=== PATIENT | female | born 1980 | race Caucasian/White ===

== ENCOUNTER → 2016-10-13 | Outpatient (CLI) | payer OTHER ==
[~2016-10-13] MED LIST: ACET50TA PO; IBUP80TA PO
[2016-10-13 11:24] LABS: ESTRADIOL 30.9 PG/ML
== END ==
LOC: M LAB 06:11
PROVIDERS: ATTEND Obstetrics & Gynecology Reproductive Endocrinology
DX: N97.9 Female infertility, unspecified (principal)

== ENCOUNTER → 2017-07-27 | Outpatient (REF) | payer OTHER ==
[2017-07-27 14:20] LABS: INFLUENZA A AMPLIFICATION POSITIVE (NEGATIVE); INFLUENZA B AMPLIFICATION NEGATIVE (NEGATIVE)
== END ==
LOC: M LAB REF 13:15
DX: J01.90 Acute sinusitis, unspecified (principal)

== ENCOUNTER → 2017-08-27 | Outpatient (REF) | payer OTHER | LOC: M LAB REF 16:26 | DX: N39.0 Urinary tract infection, site not specified (principal) ==

== ENCOUNTER → 2018-01-18 | Outpatient (CLI) | payer OTHER | LOC: M WUC 09:58 | DX: M25.571 Pain in right ankle and joints of right foot (principal) | CPT/HCPCS: 73610 ==

== ENCOUNTER → 2018-04-20 | Outpatient (REF) | payer OTHER | LOC: M LAB REF 13:53 | DX: Z12.4 Encounter for screening for malignant neoplasm of cervix (principal) ==

== ENCOUNTER → 2018-06-03 | Outpatient (CLI) | payer OTHER | LOC: M LAB 15:59 | DX: M25.562 Pain in left knee (principal) | CPT/HCPCS: 73564 ==

== ENCOUNTER → 2019-05-02 | Outpatient (REF) | payer OTHER ==
[~2019-05-02] MED LIST changes: -ACET50TA PO; +MAPA500T17 PO
== END ==
LOC: M LAB REF 19:25
PROVIDERS: ATTEND Advanced Practice Midwife
DX: Z12.4 Encounter for screening for malignant neoplasm of cervix (principal)

== ENCOUNTER → 2021-04-16 | Outpatient (REF) | payer OTHER | LOC: M SFHCWAGY 13:12 | PROVIDERS: ATTEND Advanced Practice Midwife | DX: Z01.419 Encounter for gynecological examination (general) (routine) without abnormal findings (principal); Z12.4 Encounter for screening for malignant neoplasm of cervix | CPT/HCPCS: 87624; G0123 ==

== ENCOUNTER → 2022-07-03 | Outpatient (CLI) | payer OTHER ==
[2022-07-03 12:30] LABS: BASO % 0.8 % (0.0-1.0); EOS # 0.1 10^3/uL (0.0-0.5); EOS % 1.9 % (0.0-3.0); HEMATOCRIT 36.7 % (36.0-47.0); HEMOGLOBIN 11.9 g/dl (12.0-15.5); LYMPH # 1.7 10^3/uL (1.5-5.0); LYMPH % 32.9 % (24.0-44.0); MEAN CORPUSCULAR HEMOGLOBIN 29.5 pg (27.0-33.0); MEAN CORPUSCULAR HGB CONC 32.4 g/dl (32.0-36.5); MEAN CORPUSCULAR VOLUME 91.1 fl (80.0-96.0); MONO # 0.5 10^3/uL (0.0-0.8); MONO % 9.6 % (2.0-8.0); NEUTROPHILS # 2.9 10^3/uL (1.5-8.5); NEUTROPHILS % 54.6 % (36.0-66.0); PLATELET COUNT, AUTOMATED 251 10^3/uL (150-450); RED BLOOD COUNT 4.03 10^6/uL (4.00-5.40); WHITE BLOOD COUNT 5.2 10^3/uL (4.0-10.0)
[2022-07-03 13:00] LABS: ALBUMIN 4.1 G/DL (3.2-5.2); ALKALINE PHOSPHATASE 64 U/L (46-116); ALT/SGPT 28 U/L (7.0-40); AST/SGOT 19 U/L (<34); BILIRUBIN,TOTAL 0.4 MG/DL (0.3-1.2); BLOOD UREA NITROGEN 16 MG/DL (9-23); CALCIUM LEVEL 9.3 MG/DL (8.5-10.1); CARBON DIOXIDE LEVEL 26 MMOL/L (20-31); CHLORIDE LEVEL 104 MMOL/L (98-107); CHOLESTEROL LEVEL 205 MG/DL (<200); CHOLESTEROL RISK RATIO 2.85 (<5); CREATININE FOR GFR 0.89 MG/DL (0.55-1.30); GLOMERULAR FILTRATION RATE > 60.0 (>60); GLUCOSE, FASTING 87 MG/DL (60-100); HDL CHOLESTEROL 71.8 MG/DL (>40); LDL CHOLESTEROL 120.6 MG/DL (<100); NON-HDL-C 133 MG/DL; POTASSIUM SERUM 4.1 MMOL/L (3.5-5.1); SODIUM LEVEL 138 MMOL/L (136-145); TRIGLYCERIDES LEVEL 63 MG/DL (<150)
[2022-07-03 13:01] LABS: FREE T4 1.07 NG/DL (0.89-1.76); THYROID STIMULATING HORMONE 1.034 uIU/ML (0.55-4.78)
[2022-07-03 14:38] LABS: TOTAL 25(OH) VITAMIN D 52.5 NG/ML (20.0-100.0)
== END ==
LOC: M WUC 10:13
PROVIDERS: ATTEND Family Medicine
DX: Z13.29 Encounter for screening for other suspected endocrine disorder (principal); Z13.0 Encounter for screening for diseases of the blood and blood-forming organs and certain disorders involving the immune mechanism; E55.9 Vitamin D deficiency, unspecified

== ENCOUNTER → 2025-01-09 | Outpatient (CLI) | payer OTHER | LOC: M PLAIMG 10:07 | PROVIDERS: ATTEND Family Medicine | DX: S46.012A Strain of muscle(s) and tendon(s) of the rotator cuff of left shoulder, initial encounter (principal); W18.30XA Fall on same level, unspecified, initial encounter; Y92.009 Unspecified place in unspecified non-institutional (private) residence as the place of occurrence of the external cause ==